=== PATIENT | male | born 1985 | race Caucasian/White ===

== ENCOUNTER 2018-09-19 11:25 | Emergency (ER) | payer MEDICAID, SELFPAY ==
[2018-09-19 11:25] VITALS: BP 133/71; PULSE 70; RESP 16; TEMP 36.4; O2SAT 98; BMI 21.7
--- NOTE | 2018-09-19 11:38 | ED.VISSUMM ---
- ER Visit Summary Date of Service: 09/19/18 Chief Complaint: Constipation History of Present Illness: The patient is a 33 M who presents with constipation. He is felt this way for 3 days. He had some abdominal pain in the epigastric region. He took a whole bottle of magnesium citrate and the pain moved from the surface in the epigastrium to deeper in the left side of his abdomen. He has no history of constipation in the past. He has been eating and drinking normally. Today he felt a little bit dizzy and weak at work so he came in for evaluation. Physical Examination: Vital signs reviewed. HEENT exam unremarkable. Heart is regular rate and rhythm without murmurs. Lungs are clear to auscultation. Abdomen is soft and nontender. Extremities reveal no edema. Skin exam normal. Neurologic exam normal. Test Results: KUB reveals a left ureteral calculus with moderate stool. Urinalysis normal Emergency Department Course and Treatment: The KUB does show stool however does show a 3 mm ureteral stone. I did a urinalysis with no evidence of blood or infection. This could causes discomfort on the left side. Patient will continue NSAIDs as I do not feel that narcotics would be prudent as he is already constipated. I will give him MiraLAX to take at home. He will follow-up with his PCP Treatment Plan: [] Disposition: Discharge Impression: Constipation, ureteral stone, left This note was generated with [employer] dictation software. It may contain incorrect words, spelling, and punctuation that were not noted in review of the chart prior to signing ED Disposition - Plan for ED Patient: Referrals: Care Physician,No Primary [Primary Care Provider] -
--- NOTE | 2018-09-19 11:52 | RAD_ITS ---
STUDY: X-RAY - ABDOMEN/PELVIS REASON FOR EXAM: Male, 33 years old. Constipation and abdominal pain. TECHNIQUE: Single AP view of the abdomen / pelvis. COMPARISON: None. FINDINGS: There is a moderate amount of colonic fecal material. There is a 3.4 mm rounded calcification adjacent to the L3 transverse process on the left side. This may represent a mid left ureteral calculus. Normal soft tissue structures. Normal visualized osseous structures. RAD/Abdomen Single View IMPRESSION: Findings suggestive of a mid left ureteral calculus measuring 3.4 mm. Electronically Signed: Bashir Ruth, at 12:45 EDT , Service support ,
[2018-09-19 13:20] LABS: Bacteria 0 SEEN /hpf (None Seen); Mucous, Urine 0 SEEN /hpf (<or=2+); Red Blood Cells-Urine 0 SEEN /hpf (0-5); Squamous Epithelial Cells - UA 0 SEEN /hpf (0-5)
[2018-09-19 13:24] LABS: Color, Urine Yellow (Yellow); Glucose, Dipstick Normal (Normal); Ketone-Dipstick Negative (Negative); Leukocyte Esterase-Dipstick Negative /ul (Negative); Nitrite-Dipstick Negative (Negative); Occult Blood-Urine Negative /ul (Negative); Protein-Dipstick Negative (Negative); Urine Bilirubin Dipstick Negative (Negative); Urine Clarity Sl. Cloudy (Clear); Urine Urobilinogen Normal (Normal)
[2018-09-19 13:32] LABS: White Blood Cells 0-5 SEEN /hpf (0-5)
--- NOTE | 2018-09-19 13:46 | ED.DEP ---
ED Disposition - Plan for ED Patient: Disposition: Home or Assisted Living Instructions: ED Constipation Prescriptions: Polyethylene Glycol 3350 [Miralax] 119 gm PO BID #1 powder Referrals: Care Physician,No Primary [Primary Care Provider] -
[2018-09-19 14:00] VITALS: BP 116/72; PULSE 51; RESP 18; O2SAT 98
== END 2018-09-19 14:01 | disposition home or self-care (01) ==
PROVIDERS: Emergency Provider Emergency Medicine
DX: K59.00 Constipation, unspecified (principal); N20.1 Calculus of ureter; Z72.0 Tobacco use
CPT/HCPCS: 74018; 81001; 99282

== ENCOUNTER 2019-01-09 19:05 | Emergency (ER) | payer MEDICAID, SELFPAY ==
[2019-01-09 19:05] VITALS: BP 128/70; PULSE 76; RESP 18; TEMP 36.9; O2SAT 98; BMI 21.6
--- NOTE | 2019-01-09 20:32 | CT_ITS ---
HISTORY: LEFT FLANK PAIN TECHNIQUE: Helically acquired images were obtained of the abdomen and pelvis without oral or IV contrast. A radiation dose optimization technique was used for this scan. COMPARISON: 09/19/18 abdominal radiograph. FINDINGS: # of images incl. paperwork: [id number] LOWER CHEST: No acute or concerning findings lung bases. LIVER: Homogeneous. No focal mass. GALLBLADDER AND BILIARY TREE: No calcified gallstones. No pericholecystic edema. No intra- or extrahepatic biliary ductal dilation. KIDNEYS AND URETERS: 3 mm left UVJ stone with mild more proximal hydronephrosis and hydroureter. Punctate residual stone lower pole calyx left kidney. No right-sided stones. Right kidney and right ureter are unremarkable. ADRENAL GLANDS: Non-enlarged. SPLEEN: Normal size, no mass. PANCREAS: No pancreatic inflammation or mass. BOWEL: Normal appendix. No obstruction or inflammation of the bowel. LYMPH NODES: No enlarged mesenteric or retroperitoneal lymph nodes. PERITONEUM: No ascites or free air. No other fluid collection. VESSELS: No abdominal aortic aneurysm. URINARY BLADDER: Unremarkable. REPRODUCTIVE ORGANS: No pelvic masses.Prostate normal size. ABDOMINAL WALL: No concerning findings. BONES: No acute osseous abnormality. Incidental limbus vertebra L3. CT/Abdomen/Pelvis without Cont IMPRESSION: 3 mm left UVJ stone with mild obstruction. Punctate residual stone left kidney. Individualized dose optimization techniques were used for this CT. at [id number] Reported and signed by: Yo Morse MD Electronically Signed: Yo Morse, at 21:17 EDT Tel , Service support ,
[2019-01-09 20:33] LABS: Bacteria 0 SEEN /hpf (None Seen); Red Blood Cells-Urine 0 SEEN /hpf (0-5); Squamous Epithelial Cells - UA 0 SEEN /hpf (0-5)
[2019-01-09 20:35] LABS: Absolute Lymphocyte Count 1.66 X10^3/ul (0.83-4.51); Absolute Neutrophil Count 3.9 X10^3/uL (2.0-7.7); Basophil# 0.03 X10^3/uL; Basophil% 0.5 % (0-1); Eosinophil# 0.12 X10^3/uL; Eosinophils% 1.9 % (0-5); Hematocrit 40.7 % (40-54); Hemoglobin 13.8 g/dl (13.0-16.5); Lymphocyte # 1.66 X10^3/ul (4.0); Lymphocyte % 26.9 % (19-41); Mean Corp Hgb Conc 33.9 g/gl (32-36); Mean Corpuscular Hgb 30.7 pg (27.0-32.0); Mean Corpuscular Volume 90.6 fL (80-94); Mean Platelet Vol. 10.4 fl (6.2-12.0); Monocyte# 0.48 X10^3/uL; Monocyte% 7.8 % (0-10); Neutrophil # 3.87 X10^3/uL (2.7-7.7); Neutrophil % 62.7 % (47-70); Platelet Count 211 K/mm3 (150-450); RBC Distribution Width CV 12.6 % (11.6-14.6); RBC Distribution Width SD 41.5 fl (35.1-43.9); Red Blood Count 4.49 M/mm3 (4.6-6.2); White Blood Count 6.2 K/mm3 (4.4-11.0)
[2019-01-09 20:42] LABS: POSITIVE COUNT NO; POSITIVE DIFFERENTIAL NO; POSITIVE MORPHOLOGY NO
[2019-01-09 20:43] LABS: Anion Gap 4 (5-15); BUN 14 mg/dL (7-18); BUN/Creat Ratio 14.1 RATIO (10-20); Calcium,Total 9.1 mg/dL (8.5-10.1); Chloride 105 mmol/L (98-107); EST Glomerular Filtration Rate 92 mL/min (>60); Est Glom Filt Rate - Afr Amer 111 mL/min (>60); Glucose 85 mg/dL (74-106); Potassium 3.9 mmol/L (3.5-5.1); Sodium Level 137 mmol/L (136-145)
[2019-01-09] MEDS: Ondansetron 4 MG/2 ML Vial IV (20:44)
[2019-01-09] MEDS: Ketorolac 30 MG/ML Syringe IV (20:44)
[2019-01-09] MEDS: 0.9% Normal Saline 1,000 ML 1000 ML IV (20:44)
[2019-01-09 20:46] LABS: Color, Urine Yellow (Yellow); Glucose, Dipstick Normal (Normal); Ketone-Dipstick Negative (Negative); Leukocyte Esterase-Dipstick 25 /ul (Negative); Nitrite-Dipstick Negative (Negative); Occult Blood-Urine Negative /ul (Negative); Protein-Dipstick 15 mg/dl (Negative); Specific Gravity, Urine 1.015 (1.002-1.030); Urine Bilirubin Dipstick Negative (Negative); Urine Clarity Clear (Clear); Urine Urobilinogen Normal (Normal)
[2019-01-09 20:58] LABS: Mucous, Urine 1+ /hpf (<or=2+); White Blood Cells 0-5 SEEN /hpf (0-5)
--- NOTE | 2019-01-09 22:16 | ED.DCSUM_ITS ---
- ER Visit Summary Date of Service: 01/09/19 Chief Complaint: Left flank pain History of Present Illness: The patient is a 33 M with left flank pain. Associated with dysuria. History of kidney stones. Physical Examination: Left flank tender to palpation. No CVA tenderness. Abdomen otherwise unremarkable. Skin unremarkable. Test Results: Labs and urinalysis unremarkable. CT shows a 3 mm left UVJ stone with mild obstruction. Emergency Department Course and Treatment: Patient treated with Toradol, Zofran, fluids. Better on reevaluation. Will treat with pain meds, Flomax, Zofran. Strain all urine. Follow-up with Dr. Nunes. Treatment Plan: As above Disposition: Discharged Impression: 1. Left ureteral colic This note was generated with [employer] dictation software. It may contain incorrect words, spelling, and punctuation that were not noted in review of the chart prior to signing ED Disposition - Plan for ED Patient: Referrals: Care Physician,No Primary [Primary Care Provider] -
--- NOTE | 2019-01-09 22:18 | ED.DEP ---
ED Disposition - Plan for ED Patient: Instructions: KIDNEY STONE w/ Colic Prescriptions: Tamsulosin HCl [Flomax] 0.4 mg PO DAILY #7 cap Prescription Printed Oxycodone HCl/Acetaminophen [Percocet 5/325] 1 tab PO Q6H PRN PRN 3 Days #12 tab PRN Reason: Pain Prescription Printed Ondansetron [Zofran Odt] 4 mg PO Q8H PRN PRN #10 tab PRN Reason: Nausea Prescription Printed Referrals: Alec Nunes MD [STAFF PHYSICIAN] -
[2019-01-09 22:25] VITALS: BP 120/65; PULSE 52; RESP 12; O2SAT 98
[2019-01-09 22:26] VITALS: BP 120/65; PULSE 55; RESP 12; O2SAT 99
== END 2019-01-09 23:20 | disposition home or self-care (01) ==
PROVIDERS: Emergency Provider Emergency Medicine
DX: N20.1 Calculus of ureter (principal); Z87.442 Personal history of urinary calculi
CPT/HCPCS: 74176; 80048; 81001; 85025; 96361; 96374; 96375; 99283; J7030; A4216; J2405

== ENCOUNTER → 2023-11-11 | Outpatient (CLI) | payer MEDICAID, SELFPAY ==
--- NOTE | 2023-11-11 13:05 | VDLE_ITS ---
Reason For Study: Left leg pain RIGHT LEFT CFV is compressible, spontaneous, phasic, GSV is normal. competent and demonstrates normal CFV is compressible, spontaneous, phasic, augmentation. competent, and demonstrates normal Procedure augmentation. This is a venous duplex using B-mode, color FV is compressible, spontaneous, phasic, flow and spectral Doppler. competent and demonstrates normal Exam performed in department. augmentation. A preliminary report was called and/or faxed POP V is compressible, spontaneous, phasic, to Dr. Kendall. competent and demonstrates normal augmentation. T/P Trunk is compressible. PTV is compressible. LT PerV is compressible. VL/Venous Duplex US, Unilateral Interpretation Summary There is no evidence of left lower extremity deep vein thrombosis. Left great s aphenous vein appears patent and compressible segmentally. Normal flow patterns right common femoral vein Ordering Physician: Mayito Kendall Referring Physician: MD Benson Meek Performed By: Anum Ugarte RVT
== END | disposition home or self-care (01) ==
LOC: CVS 12:58
PROVIDERS: PCP Family Medicine; Referring Provider Student in an Organized Health Care Education/Training Program; Visit Provider Student in an Organized Health Care Education/Training Program
DX: M79.662 Pain in left lower leg (principal)
CPT/HCPCS: 93971

== ENCOUNTER → 2023-11-12 | Outpatient (CLI) | payer MEDICAID, SELFPAY ==
[2023-11-12 13:25] LABS: Absolute Neutrophil Count 5.9 X10^3/uL (2.0-7.7); Basophil# 0.06 X10^3/uL; Basophil% 0.7 % (0-1); Eosinophil# 0.16 X10^3/uL; Hematocrit 41.3 % (40-54); Hemoglobin 13.6 g/dL (13.0-16.5); Mean Corp Hgb Conc 32.9 g/dL (32-36); Mean Corpuscular Hgb 30.6 pg (27.0-32.0); Mean Corpuscular Volume 92.8 fL (80-94); Mean Platelet Vol. 10.3 fl (6.2-12.0); Monocyte# 0.61 X10^3/uL; Monocyte% 7.6 % (0-10); NRBC Flagged by Analyzer 0 % (0-5); Neutrophil # 5.86 X10^3/uL (2.7-7.7); Neutrophil % 73.1 % (47-70); Platelet Count 235 K/mm3 (150-450); RBC Distribution Width SD 44.1 fl (35.1-43.9); Red Blood Count 4.45 M/mm3 (4.6-6.2)
[2023-11-12 13:51] LABS: RBC /Synovial Fluid 3.299 10^6/uL (0); Synovial Fld Mononuclear WBC % 8.5 %; Synovial Fld Polynuclear WBC # 9.737 10^3/uL; Synovial Fld Polynuclear WBC % 91.5 %
[2023-11-12 13:55] LABS: Anion Gap 3 (5-15); BUN 14 mg/dL (7-18); BUN/Creat Ratio 19.2 RATIO (10-20); Calcium,Total 9.2 mg/dL (8.5-10.1); Chloride 103 mmol/L (98-107); Creatinine, Serum 0.73 mg/dL (0.70-1.30); EST Glomerular Filtration Rate 128 mL/min (>60); Est Glom Filt Rate - Afr Amer 155 mL/min (>60); Glucose 94 mg/dL (74-106); Potassium 4.2 mmol/L (3.5-5.1); Sodium Level 138 mmol/L (136-145)
[2023-11-12 14:03] LABS: AUTO B FLUID DILUENT BKGD CT WBC <0.1 RBC <0.01 (W<.1,R<.01); Appearance /Synovial Fluid Turbid (CLEAR); Color / Synovial Fluid Red (Pale Yellow); Source / Synovial Fluid LEFT KNEE
[2023-11-12 15:28] LABS: Lymph 8 %; Monocyte /Synovial Fluid 3 %; Neutrophil 89 % (0-25)
[2023-11-12 15:29] LABS: Body Fluid QC Type(s) BF1Q
[2023-11-14 08:17] LABS: Pathologist Comment Reviewed
== END | disposition home or self-care (01) ==
LOC: LAB 11:31
PROVIDERS: PCP Family Medicine; Referring Provider Physician Assistant Surgical; Visit Provider Physician Assistant Surgical
DX: S83.242D Other tear of medial meniscus, current injury, left knee, subsequent encounter (principal); M25.462 Effusion, left knee; X58.XXXD Exposure to other specified factors, subsequent encounter
CPT/HCPCS: 36415; 80048; 85025; 87015; 87070; 87075; 87101; 87116; 87205; 87206; 89050; 89051

== ENCOUNTER 2023-11-15 22:49 | Emergency (ER) | payer MEDICAID, SELFPAY ==
--- NOTE | 2023-11-15 00:05 | RAD_ITS ---
INDICATION: Injury/Pain EXAMINATION/TECHNIQUE: X-RAY - LEFT XR Knee 1 or 2 Views 2 VIEWS COMPARISON: FINDINGS: BONES: No fracture demonstrated. JOINTS: No dislocation. SOFT TISSUES: Soft tissue swelling. Joint effusion. Small foci of air in the soft tissues anteriorly, suprapatellar and infrapatellar, potentially within the joint space. RAD/Knee 1 or 2 Views IMPRESSION: Joint effusion. Air in the soft tissues presumably related to laceration, cannot exclude air in the joint space. No evidence of fracture. CT may be helpful to assess the joint space. Electronically Signed: Evelyn Coreas MD at 0:47 EDT ,
[2023-11-15 22:51] VITALS: BP 142/91; PULSE 88; RESP 16; TEMP 36.7; O2SAT 100
[2023-11-16] MEDS: Ketorolac 15 MG/ML Vial IV (00:25)
[2023-11-16] MEDS: Ondansetron 4 MG/2 ML Vial IV (00:25)
[2023-11-16] MEDS: 0.9% Normal Saline (1000mL) 1,000 ML 250 ML IV (00:29)
--- NOTE | 2023-11-16 00:33 | ED.VIS.LOWEX ---
[facility] <Dr. Ernst Parsons MD - Last Filed: 11/16/23 14:43> History of Present Illness Chief Complaint: Anxiety Detail of Chief Complaint: Left knee pain, anxiety, nausea and other symptoms Informant: patient Occured/Mechanism Comment: Patient's status post arthroscopic surgery by Dr. Kendall. He was seen in the office and had an arthrocentesis performed. Patient showed me pictures of the fluid and appeared bloody. He states the fluid was sent to the lab for analysis. Onset/Context/Timing Onset: Days Context: Sudden Onset Timing: Continuous Quality of Pain: Dull, Aching and Throbbing Location: Left knee and predominantly superior to the patella Current Severity: Moderate Maximum Severity: Severe Worsened by: Any type of movement Relieved by: Nothing patient has taken 3 Percocet with no improvement over a 6-hour scott Associated Symptoms Associated Symptoms: Positive for Loss of Funtion; Negative for Parasthesia or Weakness Narrative Narrative: Patient is a 38-year-old male. He had arthroscopic surgery by Dr. Kendall. He was seen in the office because of swelling. Arthrocentesis was performed and fluid was bloody. He had discoloration of the knee which was felt to be frostbite because of the cooling device used. He states approximately 2-2 and half days ago there is erythema. He complains of slight warmth. He denies fever, chills night sweats. He denies headache, visual, ocular auditory symptoms. He denies cardiac respiratory symptoms. Denies GI symptoms. He denies urologic symptoms. Patient has no contraindication to NSAIDs. Prior similar symptoms: Yes Recent Illness/Hospitalization: Yes [facility] <Dr. Ernst Parsons MD - Last Filed: 11/16/23 14:43> [facility] Medical History (Updated 11/16/23 @ 03:[address] Brooke Reeves MD) Kidney stone Home Medications multivitamin (Daily Value tablet) 1 ea PO DAILY 09/19/18 [History Last Taken Unknown] ondansetron 4 mg disintegrating tablet 4 mg PO Q8H PRN PRN Nausea #10 tabs 01/09/19 [Rx Last Taken Unknown] tamsulosin 0.4 mg capsule 0.4 mg PO DAILY #7 caps 01/09/19 [Rx Last Taken Unknown] Allergy/AdvReac Type Severity Reaction Status Date / Time No Known Allergies Allergy Verified 01/09/19 19:07 Social History (Updated 11/16/23 @ 00:[address] Ernst Parsons MD) household members: none Smoking Status: Light Smoker (<10/day) ROS <Dr. Ernst Parsons MD - Last Filed: 11/16/23 14:43> ROS ED Constitutional Constitutional ED: Denies chills, fever(s), subjective or sweats Eyes Eyes: Denies blurry vision, change in vision or diplopia ENT ENT ED: Denies ear pain, rhinorrhea or sore throat Respiratory/Chest Respiratory/Chest: Denies cough, dyspnea or dyspnea on exertion Gastrointestinal Gastrointestinal: Denies abdominal pain, nausea or vomiting Genitourinary Genitourinary ED: Denies dysuria, hematuria or urinary frequency Musculoskeletal Musculoskeletal: Denies arthralgias or myalgias Integumentary Reports rash Neurologic Neurologic: Denies headache(s) or paresthesias Psychiatric Psychiatric: Reports anxiety Hematologic/Lymphatic Hematologic/Lymphatic: Denies easy bleeding or easy bruising EXAM <Dr. Ernst Parsons MD - Last Filed: 11/16/23 14:43> Physical Exam Const Vital Signs: 11/15/23 22:51 11/16/23 00:50 11/16/23 02:00 Temperature 98.1 F Temperature Source Temporal Pulse Rate 88 88 102 H Respiratory Rate 16 22 H 18 Blood Pressure 142/91 H 123/70 H 123/63 H Blood Pressure Mean 108 87 83 Pulse Ox 100 99 99 Oxygen Delivery Method Room Air Room Air Room Air 11/16/23 03:19 Temperature 98.5 F Temperature Source Pulse Rate 60 Respiratory Rate 18 Blood Pressure 109/84 H Blood Pressure Mean 92 Pulse Ox 100 Oxygen Delivery Method Blood pressure is elevated. This may be due to pain. Patient does not have history of hypertension. Positive well nourished and well developed Constitutional Narrative: Patient is anxious. General Appearance ED: well developed HEENT Reports moist mucous membranes normocephalic and atraumatic Eyes PERRL Eyes Narrative: Extract muscle intact. Sclera is anicteric. Neck full ROM Resp normal respiratory effort, no retractions and clear to auscultation bilaterally Cardio regular rate, regular rhythm, S1 normal heart sound, S2 normal heart sound and no murmurs GI non-tender, non-distended and no masses Palpation: soft Extremity Negative for normal to inspection Extremity Narrative: Patient has area of erythema that is 5 x 7 cm over the left knee. Sutures are noted in place. The rash is erythematous, warm. There is no induration. There is an effusion. Patient is unable to lift his leg off the bed. He is only able to flex to approximately 120 degrees. He does have an effusion noted. There is bogginess of the skin as well. There is no crepitus. Neuro oriented x3, CN's II-XII intact bilaterally and moves all extremities Sensorium / Orientation: alert Psych Mood & Affect: anxious Skin Skin Narrative: Patient has what appears to be frostbite due to his cooling device and cellulitis of the knee. <Dr. Brooke Reeves MD - Last Filed: 11/16/23 03:11> Physical Exam Const Vital Signs: 11/15/23 22:51 11/16/23 00:50 11/16/23 02:00 Temperature 98.1 F Temperature Source Temporal Pulse Rate 88 88 102 H Respiratory Rate 16 22 H 18 Blood Pressure 142/91 H 123/70 H 123/63 H Blood Pressure Mean 108 87 83 Pulse Ox 100 99 99 Oxygen Delivery Method Room Air Room Air Room Air 11/16/23 03:19 Temperature 98.5 F Temperature Source Pulse Rate 60 Respiratory Rate 18 Blood Pressure 109/84 H Blood Pressure Mean 92 Pulse Ox 100 Oxygen Delivery Method MDM <Dr. Ernst Parsons MD - Last Filed: 11/16/23 14:43> [facility] Narrative Medical decision making narrative: Concern patient has an infection i.e. cellulitis. X-ray was obtained because of the bogginess to determine if there is reaccumulation of the hemarthrosis and to rule out any subcu air. CBC, electrolyte panel as well as ESR and CRP were obtained. Since patient has no contraindication to NSAIDs he was treated with IV Toradol since the Percocet tablets made him nauseous. He also received Zofran. Lab Data Labs: Laboratory Results - last 24 hr 11/16/23 11/16/23 00:03 01:13 WBC 11.0 RBC 4.10 L Hgb 12.6 L Hct 38.0 L MCV 92.7 MCH 30.7 MCHC 33.2 RDW Std Deviation 43.8 RDW Coeff of Khalida 12.9 Plt Count 224 MPV 10.0 Immature Gran % (Auto) 1.200 H Neut % (Auto) 79.5 H Lymph % (Auto) 10.0 L [place] % (Auto) 7.4 Eos % (Auto) 1.2 Baso % (Auto) 0.7 Absolute Neuts (auto) 8.7 H Absolute Lymphs (auto) 1.10 Nucleated RBC % 0 ESR 3 Sodium 136 Potassium 3.9 Chloride 101 Carbon Dioxide 30.0 Anion Gap 5 BUN 15 Creatinine 0.86 Est GFR (MDRD) Af Amer 129 Est GFR (MDRD) Non-Af 106 BUN/Creatinine Ratio 17.5 Glucose 94 Lactic Acid 0.9 Calcium 9.1 C-React Prot Ext Range < 2.90 Radiography Chest X-Ray - ED: 2 View and Read by ED Physician (2 view x-ray of the knee was independent reviewed interpreted by me at 0035. Patient has what appears to be subcu air on the lateral view. There is evidence of an effusion. There is no bony destruction.) Diagnostic Testing: Clinical Impression(s) from Imaging Studies Knee X-Ray 11/15/23 00:05 IMPRESSION: Joint effusion. Air in the soft tissues presumably related to laceration, cannot exclude air in the joint space. No evidence of fracture. CT may be helpful to assess the joint space. Electronically Signed: Evelyn Coreas MD at 0:47 EDT Reading Location ID and State: [id number] / [place] Tel , Service support , Lower Extremity CT 11/16/23 01:01 IMPRESSION: Moderate joint effusion with air in the joint space. These findings are nonspecific likely related to recent surgery. Cannot exclude infection. No evidence of fracture. Electronically Signed: Evelyn Coreas MD at 2:52 EDT , Radiology report was reviewed. Patient does not have a laceration. EKG Initial EKG: Attestation: I personally reviewed and interpreted this EKG as follows: Interpretation: Sinus Rhythm (Rate is 94. There is evidence of atrial enlargement. CA interval is 144 ms. Cures duration 100 ms. QT duration 3 and 58 ms. Frannie is normal) Management Discussion w/another healthcare provider: [employer]osing [employer] Operator (Dr. Calhoun was paged after reviewing the x-ray. Dr. Karimi requested CT without contrast of the left knee joint. This was ordered. He would like Dr. Jaime to contact him once the CAT scan has been performed.) Treatment and Re-Evaluation Narrative: Care was transferred to Dr. Jaime pending CT of the left knee joint. <Dr. Brooke Reeves MD - Last Filed: 11/16/23 03:11> [facility] Lab Data Labs: Laboratory Results - last 24 hr 11/16/23 11/16/23 00:03 01:13 WBC 11.0 RBC 4.10 L Hgb 12.6 L Hct 38.0 L MCV 92.7 MCH 30.7 MCHC 33.2 RDW Std Deviation 43.8 RDW Coeff of Khalida 12.9 Plt Count 224 MPV 10.0 Immature Gran % (Auto) 1.200 H Neut % (Auto) 79.5 H Lymph % (Auto) 10.0 L [place] % (Auto) 7.4 Eos % (Auto) 1.2 Baso % (Auto) 0.7 Absolute Neuts (auto) 8.7 H Absolute Lymphs (auto) 1.10 Nucleated RBC % 0 ESR 3 Sodium 136 Potassium 3.9 Chloride 101 Carbon Dioxide 30.0 Anion Gap 5 BUN 15 Creatinine 0.86 Est GFR (MDRD) Af Amer 129 Est GFR (MDRD) Non-Af 106 BUN/Creatinine Ratio 17.5 Glucose 94 Lactic Acid 0.9 Calcium 9.1 C-React Prot Ext Range < 2.90 Radiography Diagnostic Testing: Clinical Impression(s) from Imaging Studies Knee X-Ray 11/15/23 00:05 IMPRESSION: Joint effusion. Air in the soft tissues presumably related to laceration, cannot exclude air in the joint space. No evidence of fracture. CT may be helpful to assess the joint space. Electronically Signed: Evelyn Coreas MD at 0:47 EDT , Lower Extremity CT 11/16/23 01:01 IMPRESSION: Moderate joint effusion with air in the joint space. These findings are nonspecific likely related to recent surgery. Cannot exclude infection. No evidence of fracture. Electronically Signed: Evelyn Coreas MD at 2:52 EDT , Treatment and Re-Evaluation Narrative: Care was transferred to Dr. Jaime pending CT of the left knee joint. Patient signed out to me pending CT scan of the knee. CT reveals moderate joint effusion with air in the joint space. These findings are nonspecific, likely related to recent surgery. Cannot exclude infection. No evidence of fracture. I spoke with Dr. Kariim. He had reviewed the CT images. He does not feel that there is air in the joint space so much is around the joint which would be more consistent with postoperative changes. The patient has a normal white count as well as normal sed rate and CRP. His cultures from the knee obtained a couple days ago have yet to show any growth. In light of this he does feel patient is stable for discharge to home and close follow-up. Patient states he has pain medication at home, but did take it today on an empty stomach which he thinks made him feel abnormal. He will eat with his medication and follow-up with orthopedics as scheduled. Return instructions are given. Discharge Plan Triage Chief Complaint: Anxiety Other Complaint: Wound Check ED Provider: Ernst Parsons Dx/Rx/DC Orders Clinical Impression: Encounter for post surgical wound check Instructions: ED Post Op Wound Check, General Prescriptions: No Action multivitamin [Daily Value] 1 EACH tablet 1 ea PO DAILY tamsulosin 0.4 MG capsule 0.4 mg PO DAILY Qty: 7 0RF ondansetron 4 MG tablet 4 mg PO Q8H PRN PRN (Reason: Nausea) Qty: 10 0RF Primary Care Provider: Meek Knowles Referrals: Meek Knowles MD [Primary Care Provider] - Mayito Kendall DO [Med Staff - Active Staff] - Keep Terrell appointment Disposition Disposition: Home, Self Care Discharge Date/Time: 11/16/23 03:20
[2023-11-16 00:41] LABS: Anion Gap 5 (5-15); BUN 15 mg/dL (7-18); BUN/Creat Ratio 17.5 RATIO (10-20); CRP < 2.90 mg/L (0.0-3.0); Calcium,Total 9.1 mg/dL (8.5-10.1); Chloride 101 mmol/L (98-107); Creatinine, Serum 0.86 mg/dL (0.70-1.30); EST Glomerular Filtration Rate 106 mL/min (>60); Erythrocyte Sedimentation Rate 3 mm/hr (0-20); Est Glom Filt Rate - Afr Amer 129 mL/min (>60); Glucose 94 mg/dL (74-106); Potassium 3.9 mmol/L (3.5-5.1); Sodium Level 136 mmol/L (136-145)
[2023-11-16 00:44] LABS: Absolute Neutrophil Count 8.7 X10^3/uL (2.0-7.7); Basophil# 0.08 X10^3/uL; Basophil% 0.7 % (0-1); Eosinophil# 0.13 X10^3/uL; Eosinophils% 1.2 % (0-5); Hemoglobin 12.6 g/dL (13.0-16.5); Mean Corp Hgb Conc 33.2 g/dL (32-36); Mean Corpuscular Hgb 30.7 pg (27.0-32.0); Mean Corpuscular Volume 92.7 fL (80-94); Monocyte# 0.81 X10^3/uL; Monocyte% 7.4 % (0-10); NRBC Flagged by Analyzer 0 % (0-5); Neutrophil # 8.72 X10^3/uL (2.7-7.7); Neutrophil % 79.5 % (47-70); Platelet Count 224 K/mm3 (150-450); RBC Distribution Width CV 12.9 % (11.6-14.6); RBC Distribution Width SD 43.8 fl (35.1-43.9)
[2023-11-16 00:50] VITALS: BP 123/70; PULSE 88; RESP 22; O2SAT 99
--- NOTE | 2023-11-16 01:01 | CT_ITS ---
EXAM: CT Lower Extremity W/O Contrast Injection LEFT HISTORY: Status post arthroscopic surgery with infection -- Needs CT without contrast knee joint POST OP LT KNEE SURGERY 10 DAYS AGO,SWOLLEN,PAINFUL AND BRUISED NOW TECHNIQUE: Axial images obtained through the knee without IV contrast. IV Contrast: None.. Sagittal and coronal reformats were provided. RADIATION DOSAGE (If Supplied By Facility): CTDIvol = ( 15.35 ) mGy, DLP = ( 526.46 ) mGycm Individualized dose optimization techniques were used for this CT. COMPARISON: X-rays left knee earlier same day. LIMITATIONS: None. FINDINGS: No fracture demonstrated. No dislocation. Moderate joint effusion with numerous small foci of air within the joint space. Mild diffuse soft tissue edema. No other air in the soft tissues. CT/Extremity Lower without Contra IMPRESSION: Moderate joint effusion with air in the joint space. These findings are nonspecific likely related to recent surgery. Cannot exclude infection. No evidence of fracture. Electronically Signed: Evelyn Coreas MD at 2:52 EDT ,
[2023-11-16] MEDS: Ampicillin/Sulbactam 3 GM in 0.9% Normal Saline (100mL MB+) 100 ML IV (01:14)
[2023-11-16 01:17] VITALS: BMI 21.4
[2023-11-16 01:52] LABS: Lactic Acid 0.9 mmol/L (0.4-1.9)
[2023-11-16 02:00] VITALS: BP 123/63; PULSE 102; RESP 18; O2SAT 99
[2023-11-16 03:19] VITALS: BP 109/84; PULSE 60; RESP 18; TEMP 36.9; O2SAT 100
== END 2023-11-16 03:20 | disposition home or self-care (01) ==
PROVIDERS: Emergency Provider Emergency Medicine; PCP Family Medicine; Visit Provider Emergency Medicine
DX: Z51.89 Encounter for other specified aftercare (principal); F41.9 Anxiety disorder, unspecified; F17.200 Nicotine dependence, unspecified, uncomplicated; M25.562 Pain in left knee; R11.0 Nausea
CPT/HCPCS: 36415; 73560; 73700; 80048; 83605; 85025; 85652; 86140; 87040; 93005; 96365; 96375; 99284; J7030; A4216; J0295; J2405